=== PATIENT | female | born 1970 | race Caucasian/White ===

== ENCOUNTER 2021-08-07 06:32 | Inpatient (IN) ==
[2021-08-07] MEDS ORDERED: Ondansetron 4 MG/2 ML VIAL IVP ONE (06:38)
[2021-08-07] MEDS ORDERED: cefTRIAXone 1,000 MG in Water for inj. (sterile) 10 ML IVP ONE ×2 (06:54→19:47)
[2021-08-07] MEDS ORDERED: levoFLOXacin 750 MG/150 ML 750 MG/150 ML BAG IVPB ONE ×2 (06:54→19:47)
[2021-08-07 07:12] LABS: Hematocrit 36.4 % (35.3-44.9); Hemoglobin 11.3 g/dL (11.5-15.4); Immature Granulocytes % 0.3 % (0-4); Lymphocytes # 0.9 K/mcL (0.6-4.6); Lymphocytes % 24.2 %; Mean Corpuscular Hemoglobin 28.3 pg (28.0-33.3); Mean Platelet Volume 8.3 fL (9.4-12.4); Monocytes # 0.1 K/mcL (0.0-1.3); Monocytes % 3.6 %; Neutrophils # 2.8 K/mcL (1.6-8.9); Platelet Count 240 K/mcL (140-400); Red Cell Distribution Width 13.8 % (11.5-14.5); Segmented Neutrophils % 71.9 %; White Blood Count 3.9 K/mcL (4.3-11.1)
[2021-08-07 07:19] LABS: INR 1.3; Prothrombin Time 14.4 Seconds (9.4-12.1)
[2021-08-07 07:22] LABS: Activated Partial Thrombo Time 24.1 Seconds (26.0-36.0)
[2021-08-07 07:30] LABS: Alanine Aminotransferase 19 Units/L (7-52); Albumin 3.9 g/dL (3.5-5.7); Albumin/Globulin Ratio 1.1 (1.1-2.2); Alkaline Phosphatase 73 Units/L (34-104); Aspartate Amino Transferase 22 Units/L (13-39); BUN/Creatinine Ratio 17 (6-26); Bilirubin,Total 0.2 mg/dL (0.3-1.0); Blood Urea Nitrogen 17 mg/dL (6-20); Calcium 8.6 mg/dL (8.6-10.3); Carbon Dioxide 26 mEq/L (23-29); Chloride 101 mEq/L (98-107); Globulin 3.4 g/dL (2.4-3.5); Glucose 96 mg/dL (70-105); Lipase 33 Units/L (11-82); Magnesium 1.3 mg/dL (1.6-2.6); Osmolality,Calculated 291 (280-300); Phosphorous 2.6 mg/dL (2.7-4.5); Potassium 4.1 mEq/L (3.5-5.1); Sodium 140 mEq/L (136-145); Total Protein 7.3 g/dL (6.4-8.9); eGFR For African Americans > 60 (> 60); eGFR For Non-African Americans 59 (> 60)
[2021-08-07 07:31] LABS: Troponin I < 0.03 ng/mL (< 0.04)
[2021-08-07] MEDS ORDERED: Isovue-370 500 ML BOTTLE IVP ONE (07:49)
[2021-08-07] MEDS ORDERED: Ibuprofen 600 MG TABLET PO ONE ×4 (07:53→19:47)
[2021-08-07] MEDS ORDERED: Dexamethasone Sodium Phos/PF 10 MG/ML VIAL IVP ONE (09:11)
[2021-08-07 09:34] LABS: Bilirubin,Urine Negative (Negative); Blood,Urine Trace-intact (Negative); Clarity,Urine Clear (Clear); Color,Urine Yellow (Yellow); Glucose,Urine (UA) Normal (Normal); Ketones,Urine Negative (Negative); Leukocyte Esterase,Urine Negative (Negative); Nitrite,Urine Positive (Negative); PH,Urine 5.5 pH Units (5.0-8.0); Protein,Urine 30 mg/dL (Neg-Trace); Urobilinogen,Urine Normal (Normal)
[2021-08-07 09:44] LABS: Bacteria,Urine Moderate per hpf (None-Few); RBC,Urine 0-3 per hpf (0-3); Squamous Epithelial Cell,Urine Moderate per hpf (None-Few)
[2021-08-07] MEDS ORDERED: Melatonin 3 MG TABLET PO PRN ×2 (10:24→19:47)
[2021-08-07] MEDS ORDERED: Acetaminophen 325 MG TABLET PO PRN (10:24)
[2021-08-07] MEDS ORDERED: Mag Hydrox/Al Hydrox/Simeth 30 ML UDC PO PRN ×2 (10:24→19:47)
[2021-08-07] MEDS ORDERED: Ondansetron 4 MG/2 ML VIAL IVP PRN ×2 (10:24→19:47)
[2021-08-07] MEDS ORDERED: Naloxone 0.4 MG/ML INJ IVP PRN ×2 (10:24→19:47)
[2021-08-07] MEDS ORDERED: *HR* Enoxaparin 40 MG/0.4 ML SYRINGE SQ SCH (10:35)
[2021-08-07] MEDS ORDERED: Ipratropium 1 PUFF INHALER IH PRN ×2 (10:36→19:47)
[2021-08-07] MEDS ORDERED: Benzonatate 100 MG CAPSULE PO PRN (10:37)
[2021-08-07] MEDS ORDERED: Dextrose Gel 15 GM/37.5 ML TUBE PO PRN ×4 (10:41→19:47)
[2021-08-07] MEDS ORDERED: *HR* Dextrose 50 % in Water (Syg) 50 ML SYRINGE IVP PRN ×2 (10:41→19:47)
[2021-08-07] MEDS ORDERED: D5% in Water 1,000 ML IVC PRN ×2 (10:41→19:47)
[2021-08-07] MEDS ORDERED: Diphenoxylate/Atropine 1 TAB TABLET PO PRN ×2 (10:47→19:47)
[2021-08-07] MEDS ORDERED: Remdesivir 200 MG in 0.9 % Sodium Chloride 100 ML IVPB ONE (12:45)
[2021-08-07] MEDS ORDERED: Gabapentin 300 MG CAPSULE PO SCH (15:00)
[2021-08-07] MEDS: Insulin LISPRO 300 UNITS/3 ML VIAL SUBQ SCH ×3 (15:48→21:43)
[2021-08-07 17:30] LABS: C-Reactive Protein 96 mg/L (Less than 10)
[2021-08-07 17:48] LABS: Ferritin 198 ng/mL (10-120)
[2021-08-07] MEDS ORDERED: 0.9 % Sodium Chloride 500 ML IVC ONE (19:47)
[2021-08-07] MEDS ORDERED: Insulin LISPRO 300 UNITS/3 ML VIAL SUBQ SCH (21:00)
[2021-08-07] MEDS: Benzonatate 100 MG CAPSULE PO PRN (22:16)
[2021-08-07] MEDS: 0.9 % Sodium Chloride 1,000 ML IVC SCH ×2 (22:18→23:26)
[2021-08-07] MEDS: Gabapentin 300 MG CAPSULE PO SCH (22:18)
[2021-08-08] MEDS: *HR* Enoxaparin 40 MG/0.4 ML SYRINGE SQ SCH (06:02)
[2021-08-08] MEDS: Levothyroxine 25 MCG TABLET PO SCH (06:02)
[2021-08-08] MEDS ORDERED: Levothyroxine 25 MCG TABLET PO SCH (06:30)
[2021-08-08 08:18] LABS: BUN/Creatinine Ratio 21 (6-26); Blood Urea Nitrogen 18 mg/dL (6-20); Calcium 8.1 mg/dL (8.6-10.3); Carbon Dioxide 25 mEq/L (23-29); Chloride 106 mEq/L (98-107); Glucose 95 mg/dL (70-105); Osmolality,Calculated 294 (280-300); Potassium 4.5 mEq/L (3.5-5.1); Sodium 141 mEq/L (136-145); eGFR For African Americans > 60 (> 60); eGFR For Non-African Americans > 60 (> 60)
[2021-08-08 08:20] LABS: Alanine Aminotransferase 15 Units/L (7-52); Aspartate Amino Transferase 21 Units/L (13-39)
[2021-08-08] MEDS ORDERED: Dexamethasone Sodium Phos/PF 10 MG/ML VIAL IVP SCH (09:00)
[2021-08-08] MEDS ORDERED: levoFLOXacin 750 MG/150 ML 750 MG/150 ML BAG IVPB SCH (09:00)
[2021-08-08] MEDS: Gabapentin 300 MG CAPSULE PO SCH ×3 (09:25→22:20)
[2021-08-08] MEDS: levoFLOXacin 750 MG/150 ML 750 MG/150 ML BAG IVPB SCH (09:26)
[2021-08-08] MEDS: Insulin LISPRO 300 UNITS/3 ML VIAL SUBQ SCH ×3 (09:27→18:01)
[2021-08-08 09:48] LABS: Hematocrit 35.5 % (35.3-44.9); Hemoglobin 10.9 g/dL (11.5-15.4); Immature Granulocytes % 0.4 % (0-4); Lymphocytes # 1.3 K/mcL (0.6-4.6); Lymphocytes % 23.5 %; Mean Corpuscular HGB Conc 30.7 g/dL (31.6-35.5); Mean Corpuscular Hemoglobin 27.9 pg (28.0-33.3); Mean Platelet Volume 8.4 fL (9.4-12.4); Monocytes # 0.2 K/mcL (0.0-1.3); Monocytes % 3.6 %; Platelet Count 232 K/mcL (140-400); Red Cell Distribution Width 13.7 % (11.5-14.5); Segmented Neutrophils % 72.5 %; White Blood Count 5.6 K/mcL (4.3-11.1)
[2021-08-08] MEDS: Acetaminophen 325 MG TABLET PO PRN ×2 (11:41→22:21)
[2021-08-08] MEDS: Remdesivir 100 MG in 0.9 % Sodium Chloride 100 ML IVPB SCH (11:54)
[2021-08-08] MEDS ORDERED: Remdesivir 100 MG in 0.9 % Sodium Chloride 100 ML IVPB SCH (12:00)
[2021-08-08 14:15] LABS: Ferritin 211 ng/mL (10-120)
[2021-08-08] MEDS: Benzonatate 100 MG CAPSULE PO PRN (22:20)
[2021-08-09] MEDS: Insulin LISPRO 300 UNITS/3 ML VIAL SUBQ SCH ×5 (01:05→22:13)
[2021-08-09] MEDS: Levothyroxine 25 MCG TABLET PO SCH (06:00)
[2021-08-09] MEDS: *HR* Enoxaparin 40 MG/0.4 ML SYRINGE SQ SCH (06:00)
[2021-08-09 06:04] LABS: Hematocrit 32.1 % (35.3-44.9); Hemoglobin 9.9 g/dL (11.5-15.4); Immature Granulocytes % 0.3 % (0-4); Lymphocytes # 0.9 K/mcL (0.6-4.6); Mean Corpuscular HGB Conc 30.8 g/dL (31.6-35.5); Mean Corpuscular Volume 90.7 fL (83.0-100.0); Mean Platelet Volume 8.5 fL (9.4-12.4); Monocytes # 0.2 K/mcL (0.0-1.3); Monocytes % 4.4 %; Neutrophils # 2.4 K/mcL (1.6-8.9); Platelet Count 231 K/mcL (140-400); Red Blood Count 3.54 M/mcL (3.82-4.97); Red Cell Distribution Width 13.8 % (11.5-14.5); Segmented Neutrophils % 69.3 %; White Blood Count 3.4 K/mcL (4.3-11.1)
[2021-08-09 06:21] LABS: Alanine Aminotransferase 15 Units/L (7-52); Aspartate Amino Transferase 20 Units/L (13-39)
[2021-08-09 06:24] LABS: Alanine Aminotransferase 15 Units/L (7-52); Albumin 3.4 g/dL (3.5-5.7); Albumin/Globulin Ratio 1.1 (1.1-2.2); Alkaline Phosphatase 59 Units/L (34-104); Aspartate Amino Transferase 21 Units/L (13-39); BUN/Creatinine Ratio 17 (6-26); Bilirubin,Total 0.2 mg/dL (0.3-1.0); Blood Urea Nitrogen 14 mg/dL (6-20); Calcium 8.4 mg/dL (8.6-10.3); Carbon Dioxide 28 mEq/L (23-29); Chloride 106 mEq/L (98-107); Glucose 104 mg/dL (70-105); Osmolality,Calculated 297 (280-300); Potassium 4.4 mEq/L (3.5-5.1); Sodium 143 mEq/L (136-145); Total Protein 6.4 g/dL (6.4-8.9); eGFR For African Americans > 60 (> 60); eGFR For Non-African Americans > 60 (> 60)
[2021-08-09] MEDS: Gabapentin 300 MG CAPSULE PO SCH ×3 (08:41→22:13)
[2021-08-09] MEDS: levoFLOXacin 750 MG/150 ML 750 MG/150 ML BAG IVPB SCH (08:50)
[2021-08-09 09:52] LABS: Ferritin 246 ng/mL (10-120)
[2021-08-09] MEDS: Benzonatate 100 MG CAPSULE PO PRN ×2 (10:25→22:12)
[2021-08-09] MEDS: Remdesivir 100 MG in 0.9 % Sodium Chloride 100 ML IVPB SCH (12:10)
[2021-08-09] MEDS: Acetaminophen 325 MG TABLET PO PRN (22:12)
[2021-08-10] MEDS: *HR* Enoxaparin 40 MG/0.4 ML SYRINGE SQ SCH (06:35)
[2021-08-10] MEDS: Levothyroxine 25 MCG TABLET PO SCH (06:35)
[2021-08-10 07:44] LABS: Alanine Aminotransferase 16 Units/L (7-52); Aspartate Amino Transferase 20 Units/L (13-39)
[2021-08-10 08:20] LABS: Hematocrit 33.9 % (35.3-44.9); Hemoglobin 10.6 g/dL (11.5-15.4); Immature Granulocytes % 0.3 % (0-4); Lymphocytes # 1.1 K/mcL (0.6-4.6); Lymphocytes % 35.9 %; Mean Corpuscular HGB Conc 31.3 g/dL (31.6-35.5); Mean Corpuscular Hemoglobin 27.7 pg (28.0-33.3); Mean Corpuscular Volume 88.7 fL (83.0-100.0); Monocytes # 0.2 K/mcL (0.0-1.3); Monocytes % 5.9 %; Platelet Count 237 K/mcL (140-400); Red Blood Count 3.82 M/mcL (3.82-4.97); Red Cell Distribution Width 13.4 % (11.5-14.5); Segmented Neutrophils % 57.9 %
[2021-08-10 08:25] LABS: Neutrophils # 1.7 K/mcL (1.6-8.9)
[2021-08-10] MEDS: Benzonatate 100 MG CAPSULE PO PRN ×2 (08:39→22:25)
[2021-08-10] MEDS: Gabapentin 300 MG CAPSULE PO SCH ×3 (08:40→22:26)
[2021-08-10] MEDS: levoFLOXacin 750 MG/150 ML 750 MG/150 ML BAG IVPB SCH (08:42)
[2021-08-10] MEDS: Insulin LISPRO 300 UNITS/3 ML VIAL SUBQ SCH ×4 (08:44→22:27)
[2021-08-10] MEDS: Remdesivir 100 MG in 0.9 % Sodium Chloride 100 ML IVPB SCH (12:34)
[2021-08-10 21:20] LABS: Ferritin 203 ng/mL (10-120)
[2021-08-11 00:06] VITALS: RESP 18
[2021-08-11 03:50] VITALS: BP 124/84; PULSE 72; TEMP 98
[2021-08-11] MEDS: *HR* Enoxaparin 40 MG/0.4 ML SYRINGE SQ SCH (06:22)
[2021-08-11] MEDS: Levothyroxine 25 MCG TABLET PO SCH (06:22)
[2021-08-11] MEDS: levoFLOXacin 750 MG/150 ML 750 MG/150 ML BAG IVPB SCH (08:26)
[2021-08-11] MEDS: Insulin LISPRO 300 UNITS/3 ML VIAL SUBQ SCH ×2 (08:27→11:42)
[2021-08-11] MEDS: Gabapentin 300 MG CAPSULE PO SCH (08:27)
[2021-08-11 09:24] LABS: Eosinophils % 0.2 %; Hematocrit 32.6 % (35.3-44.9); Immature Granulocytes % 0.4 % (0-4); Lymphocytes # 1.3 K/mcL (0.6-4.6); Lymphocytes % 24.2 %; Mean Corpuscular HGB Conc 30.7 g/dL (31.6-35.5); Mean Corpuscular Hemoglobin 27.4 pg (28.0-33.3); Mean Corpuscular Volume 89.3 fL (83.0-100.0); Mean Platelet Volume 9.3 fL (9.4-12.4); Monocytes # 0.3 K/mcL (0.0-1.3); Monocytes % 4.8 %; Neutrophils # 3.8 K/mcL (1.6-8.9); Platelet Count 226 K/mcL (140-400); Red Blood Count 3.65 M/mcL (3.82-4.97); Red Cell Distribution Width 13.2 % (11.5-14.5); Segmented Neutrophils % 70.4 %; White Blood Count 5.4 K/mcL (4.3-11.1)
[2021-08-11 09:43] VITALS: O2SAT 95
[2021-08-11 10:06] LABS: Alanine Aminotransferase 22 Units/L (7-52); Aspartate Amino Transferase 18 Units/L (13-39)
[2021-08-11 10:23] LABS: BUN/Creatinine Ratio 26 (6-26); Blood Urea Nitrogen 20 mg/dL (6-20); Calcium 8.5 mg/dL (8.6-10.3); Carbon Dioxide 26 mEq/L (23-29); Chloride 105 mEq/L (98-107); Glucose 106 mg/dL (70-105); Osmolality,Calculated 295 (280-300); Potassium 3.4 mEq/L (3.5-5.1); Sodium 141 mEq/L (136-145); eGFR For African Americans > 60 (> 60); eGFR For Non-African Americans > 60 (> 60)
[2021-08-11] MEDS: Remdesivir 100 MG in 0.9 % Sodium Chloride 100 ML IVPB SCH (11:50)
[2021-08-11 17:32] LABS: C-Reactive Protein 21 mg/L (Less than 10)
[2021-08-11 17:48] LABS: Ferritin 179 ng/mL (10-120)
== END 2021-08-11 14:05 | disposition home or self-care (01) | DRG 137 ==
LOC: EMEROOPIK 06:32 → INPPIK 06:32 → OBSVTOIN 12:08 → INPPIK 12:40
PROVIDERS: ADMIT Registered Nurse Emergency; ATTEND Registered Nurse Emergency

== ENCOUNTER 2021-08-18 21:12 | Observation (INO) ==
[2021-08-18] MEDS ORDERED: Isovue-370 500 ML BOTTLE IVP ONE ×2 (21:42→23:48)
[2021-08-18] MEDS ORDERED: Ondansetron 4 MG/2 ML VIAL IVP ONE (21:42)
[2021-08-18] MEDS ORDERED: 0.9 % Sodium Chloride 1,000 ML IVC ONE (21:42)
[2021-08-18] MEDS ORDERED: 0.9 % Sodium Chloride 1,000 ML IVC SCH (21:45)
[2021-08-18 22:02] LABS: Basophils % 0.1 %; Eosinophils # 0.1 K/mcL (0.0-0.6); Eosinophils % 1.5 %; Hematocrit 35.4 % (35.3-44.9); Hemoglobin 11.1 g/dL (11.5-15.4); Immature Granulocytes % 0.6 % (0-4); Lymphocytes # 2.6 K/mcL (0.6-4.6); Lymphocytes % 32.8 %; Mean Corpuscular HGB Conc 31.4 g/dL (31.6-35.5); Mean Corpuscular Volume 89.4 fL (83.0-100.0); Mean Platelet Volume 8.1 fL (9.4-12.4); Monocytes # 0.7 K/mcL (0.0-1.3); Monocytes % 9.1 %; Neutrophils # 4.5 K/mcL (1.6-8.9); Platelet Count 409 K/mcL (140-400); Red Blood Count 3.96 M/mcL (3.82-4.97); Segmented Neutrophils % 55.9 %
[2021-08-18 22:17] LABS: BUN/Creatinine Ratio 26 (6-26); Blood Urea Nitrogen 46 mg/dL (6-20); Calcium 8.9 mg/dL (8.6-10.3); Carbon Dioxide 30 mEq/L (23-29); Chloride 100 mEq/L (98-107); Glucose 97 mg/dL (70-105); Osmolality,Calculated 302 (280-300); Potassium 4.3 mEq/L (3.5-5.1); Sodium 140 mEq/L (136-145); eGFR For African Americans 37 (> 60); eGFR For Non-African Americans 31 (> 60)
[2021-08-18 22:22] LABS: Troponin I < 0.03 ng/mL (< 0.04)
[2021-08-18] MEDS ORDERED: *HR* Heparin 5,000 UNIT/ML VIAL IVP ONE ×2 (23:20→23:48)
[2021-08-18] MEDS ORDERED: Heparin 25,000UNIT/250ML 1/2NS 25,000 UNIT/250 ML IV.SOLN IVC SCH ×2 (23:30→23:48)
[2021-08-18] MEDS ORDERED: Melatonin 3 MG TABLET PO PRN (23:48)
[2021-08-18] MEDS ORDERED: Ondansetron 4 MG/2 ML VIAL IVP PRN (23:48)
[2021-08-18] MEDS ORDERED: Dextrose Gel 15 GM/37.5 ML TUBE PO PRN ×2 (23:48)
[2021-08-18] MEDS ORDERED: D5% in Water 1,000 ML IVC PRN (23:48)
[2021-08-18] MEDS ORDERED: *HR* Dextrose 50 % in Water (Syg) 50 ML SYRINGE IVP PRN (23:48)
[2021-08-18] MEDS ORDERED: Naloxone 0.4 MG/ML INJ IVP PRN (23:48)
[2021-08-18] MEDS ORDERED: 0.9 % Sodium Chloride 1,000 ML ONE (23:59)
[2021-08-19] MEDS: 0.9 % Sodium Chloride 1,000 ML IVC SCH ×3 (00:57→15:39)
[2021-08-19 01:09] LABS: INR 1.1; Prothrombin Time 12.7 Seconds (9.4-12.1)
[2021-08-19] MEDS: Acetaminophen 325 MG TABLET PO PRN ×2 (03:40→12:51)
[2021-08-19] MEDS: Levothyroxine 25 MCG TABLET PO SCH (05:50)
[2021-08-19] MEDS ORDERED: 0.9 % Sodium Chloride 1,000 ML IVC ONE (06:44)
[2021-08-19] MEDS: Insulin LISPRO 300 UNITS/3 ML VIAL SUBQ SCH ×4 (07:53→21:05)
[2021-08-19] MEDS: Venlafaxine XR (24 HR) 75 MG CAP.ER.24H PO SCH (08:12)
[2021-08-19] MEDS: levoFLOXacin 750 MG TABLET PO SCH (08:12)
[2021-08-19] MEDS: Gabapentin 300 MG CAPSULE PO SCH ×3 (08:12→20:57)
[2021-08-19 08:14] LABS: Calcium 7.9 mg/dL (8.6-10.3); Potassium 3.9 mEq/L (3.5-5.1)
[2021-08-19] MEDS ORDERED: Albumin 25% 25gram/100mL 25 GM/100 ML IV.SOLN IVPB ONE (09:01)
[2021-08-19 12:56] LABS: Bilirubin,Urine Negative (Negative); Blood,Urine Negative (Negative); Clarity,Urine Clear (Clear); Color,Urine Yellow (Yellow); Glucose,Urine (UA) Normal (Normal); Ketones,Urine Negative (Negative); Leukocyte Esterase,Urine Negative (Negative); Nitrite,Urine Negative (Negative); PH,Urine 5.5 pH Units (5.0-8.0); Protein,Urine Negative (Neg-Trace); Urobilinogen,Urine Normal (Normal)
[2021-08-20] MEDS: 0.9 % Sodium Chloride 1,000 ML IVC SCH ×2 (00:56→09:40)
[2021-08-20] MEDS: *HR* Enoxaparin 40 MG/0.4 ML SYRINGE SQ SCH (06:07)
[2021-08-20] MEDS: Levothyroxine 25 MCG TABLET PO SCH (06:08)
[2021-08-20] MEDS: Acetaminophen 325 MG TABLET PO PRN ×2 (06:10→20:19)
[2021-08-20 07:17] LABS: Basophils % 0.2 %; Eosinophils # 0.1 K/mcL (0.0-0.6); Eosinophils % 1.5 %; Hematocrit 30.2 % (35.3-44.9); Hemoglobin 9.3 g/dL (11.5-15.4); Immature Granulocytes % 0.4 % (0-4); Lymphocytes # 1.8 K/mcL (0.6-4.6); Lymphocytes % 37.6 %; Mean Corpuscular HGB Conc 30.8 g/dL (31.6-35.5); Mean Corpuscular Hemoglobin 27.8 pg (28.0-33.3); Mean Corpuscular Volume 90.4 fL (83.0-100.0); Mean Platelet Volume 7.8 fL (9.4-12.4); Monocytes # 0.4 K/mcL (0.0-1.3); Monocytes % 8.8 %; Neutrophils # 2.5 K/mcL (1.6-8.9); Platelet Count 240 K/mcL (140-400); Red Blood Count 3.34 M/mcL (3.82-4.97); Red Cell Distribution Width 13.7 % (11.5-14.5); Segmented Neutrophils % 51.5 %; White Blood Count 4.8 K/mcL (4.3-11.1)
[2021-08-20] MEDS: Insulin LISPRO 300 UNITS/3 ML VIAL SUBQ SCH ×4 (08:56→20:14)
[2021-08-20] MEDS: levoFLOXacin 750 MG TABLET PO SCH (09:06)
[2021-08-20] MEDS: Gabapentin 300 MG CAPSULE PO SCH ×3 (09:06→20:19)
[2021-08-20] MEDS: Venlafaxine XR (24 HR) 75 MG CAP.ER.24H PO SCH (09:06)
[2021-08-20] MEDS ORDERED: Aspirin 325 MG TABLET PO ONE (09:24)
[2021-08-20 10:46] LABS: BUN/Creatinine Ratio 21 (6-26); Blood Urea Nitrogen 20 mg/dL (6-20); Calcium 8.5 mg/dL (8.6-10.3); Carbon Dioxide 26 mEq/L (23-29); Chloride 107 mEq/L (98-107); Glucose 113 mg/dL (70-105); Osmolality,Calculated 295 (280-300); Potassium 4.1 mEq/L (3.5-5.1); Sodium 141 mEq/L (136-145); eGFR For African Americans > 60 (> 60); eGFR For Non-African Americans > 60 (> 60)
[2021-08-20] MEDS ORDERED: Cefdinir 300 MG CAPSULE PO SCH (21:00)
[2021-08-21 05:28] LABS: Basophils % 0.2 %; Eosinophils # 0.1 K/mcL (0.0-0.6); Hematocrit 31.1 % (35.3-44.9); Hemoglobin 9.8 g/dL (11.5-15.4); Immature Granulocytes % 0.4 % (0-4); Lymphocytes # 1.9 K/mcL (0.6-4.6); Lymphocytes % 38.5 %; Mean Corpuscular HGB Conc 31.5 g/dL (31.6-35.5); Mean Corpuscular Hemoglobin 28.1 pg (28.0-33.3); Mean Corpuscular Volume 89.1 fL (83.0-100.0); Mean Platelet Volume 8.1 fL (9.4-12.4); Monocytes # 0.4 K/mcL (0.0-1.3); Neutrophils # 2.5 K/mcL (1.6-8.9); Platelet Count 241 K/mcL (140-400); Red Blood Count 3.49 M/mcL (3.82-4.97); Red Cell Distribution Width 13.8 % (11.5-14.5); Segmented Neutrophils % 50.9 %; White Blood Count 4.9 K/mcL (4.3-11.1)
[2021-08-21] MEDS: *HR* Enoxaparin 40 MG/0.4 ML SYRINGE SQ SCH (05:37)
[2021-08-21] MEDS: Levothyroxine 25 MCG TABLET PO SCH (05:37)
[2021-08-21 05:55] LABS: BUN/Creatinine Ratio 21 (6-26); Blood Urea Nitrogen 16 mg/dL (6-20); Calcium 8.4 mg/dL (8.6-10.3); Carbon Dioxide 27 mEq/L (23-29); Chloride 107 mEq/L (98-107); Glucose 108 mg/dL (70-105); Osmolality,Calculated 296 (280-300); Sodium 142 mEq/L (136-145); eGFR For African Americans > 60 (> 60); eGFR For Non-African Americans > 60 (> 60)
[2021-08-21] MEDS: Insulin LISPRO 300 UNITS/3 ML VIAL SUBQ SCH ×2 (07:35→11:46)
[2021-08-21] MEDS: Gabapentin 300 MG CAPSULE PO SCH ×2 (10:00→15:05)
[2021-08-21] MEDS: Venlafaxine XR (24 HR) 75 MG CAP.ER.24H PO SCH (10:01)
[2021-08-21 10:59] VITALS: RESP 18; TEMP 97.8; O2SAT 96
[2021-08-21 15:04] VITALS: BP 132/81; PULSE 94
== END 2021-08-21 16:12 | disposition home or self-care (01) ==
LOC: EMEROOPIK 21:12 → INPPIK 21:12
PROVIDERS: ADMIT Family Medicine; ATTEND Family Medicine